=== PATIENT | female | born 1950 | race Caucasian/White ===

== ENCOUNTER 2023-06-12 13:23 | Emergency (ER) | payer MEDICARE, SELFPAY ==
[2023-06-12] VITALS (12 sets, daily range): BP systolic 98–127; BP diastolic 44–82; PULSE 69–94; RESP 12–20; TEMP 36.4–36.7; O2SAT 92–99; BMI 29.4
[2023-06-12 13:47] LABS: Chloride 103 mmol/L (98-107)
[2023-06-12 13:48] LABS: Sodium 138 mmol/L (136-145)
--- NOTE | 2023-06-12 13:49 | XR_ITS ---
PROCEDURE INFORMATION: Exam: XR Right Femur Exam date and time: 06/12/2023 2:13 PM Age: 72 years old Clinical indication: Injury or trauma; Fall; Blunt trauma; Thigh or upper leg; Right; Additional info: Fall, pain TECHNIQUE: Imaging protocol: Radiologic exam of the right femur. Views: 2 views. COMPARISON: CR XR HIP RT 2-3V W/PELVIS 06/12/2023 2:12 PM FINDINGS: Bones/joints: Acute intertrochanteric fracture of the proximal femur with subtrochanteric extension and displaced comminuted lesser trochanter fracture. Mild medial displacement of the femoral shaft with mild impaction. Femoral head is seated within the acetabulum. Soft tissues: Unremarkable. IMPRESSION: Acute intertrochanteric fracture of the proximal femur with subtrochanteric extension and displaced comminuted lesser trochanter fracture. Mild medial displacement of the femoral shaft with mild impaction.
--- NOTE | 2023-06-12 13:49 | XR_ITS ---
PROCEDURE INFORMATION: Exam: XR Right Hip Exam date and time: 06/12/2023 2:12 PM Age: 72 years old Clinical indication: Injury or trauma; Fall; Blunt trauma (contusions or hematomas); Right; Hip and pelvic region; Additional info: Fall, pain TECHNIQUE: Imaging protocol: Radiologic exam of the right hip. Views: 2 or 3 views hip with pelvis when performed. COMPARISON: No relevant prior studies available. FINDINGS: Bones/joints: Acute intertrochanteric fracture of the proximal femur with subtrochanteric extension and displaced comminuted lesser trochanter fracture. Mild medial displacement of the femoral shaft with mild impaction. Femoral head is seated within the acetabulum. Soft tissues: Unremarkable. IMPRESSION: Acute intertrochanteric fracture of the proximal femur with subtrochanteric extension and displaced comminuted lesser trochanter fracture. Mild medial displacement of the femoral shaft with mild impaction. Femoral head is seated within the acetabulum.
--- NOTE | 2023-06-12 13:49 | XR_ITS ---
PROCEDURE INFORMATION: Exam: XR Right Knee Exam date and time: 06/12/2023 2:17 PM Age: 72 years old Clinical indication: Pain; Knee; Right; Additional info: Fall, pain TECHNIQUE: Imaging protocol: Radiologic exam of the right knee. Views: 3 views. COMPARISON: CR XR FEMUR RT 2V 06/12/2023 2:13 PM FINDINGS: Bones/joints: No acute fracture or dislocation. Alignment anatomic. Soft tissues: Unremarkable. IMPRESSION: No acute osseous abnormality.
[2023-06-12 13:50] LABS: Alanine Aminotransferase 50 U/L (12-78); Albumin Level 4.6 g/dl (3.5-5.0); Alkaline Phosphatase 112 U/L (38-126); Aspartate Amino Transferase 47 U/L (14-36); Bilirubin,Total 0.7 mg/dl (0.2-1.3); Blood Urea Nitrogen 19 mg/dl (7-17); Creatinine Clearance Estimated 60 mL/min (50-200); Estimated Glomerular Filt Rate 82 ml/min (>60); GFR (African American) 99 ML/MIN (>60)
[2023-06-12 13:51] LABS: Albumin/Globulin Ratio 1.3 (1.1-1.8); Calcium 9.3 mg/dl (8.4-10.2); Carbon Dioxide 26 mmol/L (22.0-30.0); Globulin 3.6 g/dL (1.3-3.2); Glucose 149 mg/dl (74-100); Total Protein,Serum 8.2 g/dl (6.3-8.2)
[2023-06-12 13:54] LABS: Activated Partial Thrombo Time 23.3 seconds (22.8-30.6); INR 1.01 (0.9-1.1); Prothrombin Time 10.9 seconds (10.1-12.5)
--- NOTE | 2023-06-12 14:04 | HMH.EDGENADL ---
Discharge Plan Disposition Patient Disposition: Admitted Condition: Good Referrals Follow up/Referrals: Provider,Referral, MD [Primary Care Provider] - See instructions Clinical Impressions Clinical Impression: Closed fracture of right hip, Fall Instructions Patient Instructions: DI for Hip Fracture Discharge ED Provider: Caesar Florence General Adult HPI <Ana Small DO - Last Filed: 06/12/23 15:27> General Chief complaint: Extremity Injury, Lower Stated complaint: Fall Time Seen by Provider: 06/12/23 13:25 Mode of Arrival: EMS Source of Information: Patient and EMS Limitations: No Limitations Description of Symptoms (Recalled from ER Triage Doc. by RN): pt was at [employer] today and tripped down two steps and landed on right hip and knee. right leg is shortened and rotated however sensation is intact and skin is warm and dry. pt denies any loc or head, neck, back injury. History of Present Illness HPI narrative: This patient is a 72-year-old female with a history of hypertension presenting to the emergency department for evaluation with concern for severe right hip pain after a fall at [employer]. She states she tripped on the stairs and missed 2 steps, landing on her right hip and knee. She has not been able to bear weight since and has significant pain and deformity to her right lower extremity. She denies any other concerns, such as head injury, loss of conscious, neck pain, back pain, chest pain, abdominal pain, or other concerns. She denies any numbness, tingling, or other issues. She was well prior to this. She does not take any blood thinners. Related Data Allergies Allergy/AdvReac Type Severity Reaction Status Date / Time Penicillins Allergy Mild Rash Verified 06/12/23 13:58 PFSH <Ana Small DO - Last Filed: 06/12/23 15:27> [facility] Disclaimer: The information contained in this section may have been updated after the patient was seen, as this information can be updated by other users. Social History (Updated 06/12/23 @ 15:27 by Ana Small DO) Smoking Status: Never smoker alcohol intake: never current occupational status: retired Travel in the last 8 weeks: None <Ana Small DO - Last Filed: 06/12/23 15:27> ROS Obtained: Yes All systems reviewed & no additional complaints except as documented Physical Exam <Ana Small DO - Last Filed: 06/12/23 15:27> General General appearance: alert and in distress (In mild distress secondary to pain) Head Head exam: atraumatic and normocephalic Eye Eye exam: Present normal appearance, PERRL and EOMI ENT ENT exam: Present normal exam, normal oropharynx, mucous membranes moist and normal external ear exam Neck Neck exam: Present normal inspection, full ROM and trachea midline; Absent tenderness Chest Chest inspection: Present normal inspection and symmetric chest wall rise; Absent tenderness Respiratory Respiratory exam: Present normal lung sounds bilaterally; Absent respiratory distress, wheezes, stridor or accessory muscle use Cardiovascular Cardiovascular exam: Present regular rate and normal rhythm Abdominal Exam Abdominal exam: Present soft; Absent distention, tenderness or guarding Extremities Exam Extremities exam: Present full ROM, tenderness, normal capillary refill, edema and other (Shortened and externally rotated right lower extremity with tenderness and vomiting to the proximal hip/thigh. All compartments soft. Neurovascularly intact distally. No other injuries noted) Back Exam Back exam: Present normal inspection and full ROM; Absent tenderness Neurological Exam Neurological exam: Present alert, oriented X3, CN II-XII intact and normal gait; Absent motor sensory deficit Psychiatric Psychiatric exam: Present normal affect and normal mood Skin Skin exam: Present warm and dry Medical Decision Making <Ana Small DO - Last Filed: 06/12/23 15:27> Medical Records Medical records reviewed: Yes I reviewed the patient's medic
--- NOTE | 2023-06-12 14:24 | CT_ITS ---
PROCEDURE INFORMATION: Exam: CT Cervical Spine Without Contrast Exam date and time: 06/12/2023 2:47 PM Age: 72 years old Clinical indication: Injury or trauma; Fall; Blunt trauma; Additional info: Fall, >65, hip pain TECHNIQUE: Imaging protocol: Computed tomography of the cervical spine without contrast. Radiation optimization: All CT scans at this facility use at least one of these dose optimization techniques: automated exposure control; mA and/or kV adjustment per patient size (includes targeted exams where dose is matched to clinical indication); or iterative reconstruction. REPORTING DATA: Count of CT and Cardiac NM exams in prior 12 months: This patient has received 0 known CTs and 0 known cardiac nuclear medicine studies in the 12 months prior to the current study. COMPARISON: CT HEAD/BRAIN WO CON 06/12/2023 2:44 PM FINDINGS: Bones/joints: Normal alignment. No fracture or traumatic subluxation. Disk spaces are maintained. No severe spinal canal stenosis. Sclerotic bone lesion T2 vertebral body likely representing benign bone island. Lungs: Lung apices are normal. Soft tissues: Unremarkable. IMPRESSION: No acute findings.
--- NOTE | 2023-06-12 14:24 | CT_ITS ---
PROCEDURE INFORMATION: Exam: CT Pelvis Without Contrast; Skeletal Exam date and time: 06/12/2023 2:50 PM Age: 72 years old Clinical indication: Injury or trauma; Fall; Blunt trauma (contusions or hematomas); Right; Hip; Additional info: Fall, >65, hip pain TECHNIQUE: Imaging protocol: Computed tomography of the pelvis without contrast. Exam focused on the skeleton. Radiation optimization: All CT scans at this facility use at least one of these dose optimization techniques: automated exposure control; mA and/or kV adjustment per patient size (includes targeted exams where dose is matched to clinical indication); or iterative reconstruction. REPORTING DATA: Count of CT and Cardiac NM exams in prior 12 months: This patient has received 0 known CTs and 0 known cardiac nuclear medicine studies in the 12 months prior to the current study. COMPARISON: CR XR HIP RT 2-3V W/PELVIS 06/12/2023 2:12 PM FINDINGS: Bones/joints: Acute intertrochanteric fracture of the proximal femur with subtrochanteric extension and displaced comminuted lesser trochanter fracture. Mild medial displacement of the femoral shaft with mild impaction. Femoral head is seated within the acetabulum. Chronic bilateral pars defects at L5 with grade 2 (approximately 50%) anterolisthesis of L5 on S1. Osteopenia. Soft tissues: Mild edema/hematoma about the fracture site. Other findings: Within the included pelvis, there is right pelvic kidney. Large ventral hernia containing colon and small bowel. Inferior margin of the liver is seen suggesting there is probably hepatomegaly. Calcified aortoiliac atherosclerotic disease. IMPRESSION: 1. Acute intertrochanteric fracture of the proximal femur with subtrochanteric extension and displaced comminuted lesser trochanter fracture. Mild medial displacement of the femoral shaft with mild impaction. Femoral head is seated within the acetabulum. 2. Chronic bilateral pars defects at L5 with grade 2 anterolisthesis of L5 on S1. 3. Other chronic and incidental findings as detailed above.
--- NOTE | 2023-06-12 14:24 | CT_ITS ---
PROCEDURE INFORMATION: Exam: CT Right Lower Extremity Without Contrast, Hip Exam date and time: 06/12/2023 2:55 PM Age: 72 years old Clinical indication: Injury or trauma; Fall; Blunt trauma; Hip; Right; Additional info: Fall, >65, hip pain TECHNIQUE: Imaging protocol: CT of the right lower extremity without contrast was performed. Exam focused on the hip. Radiation optimization: All CT scans at this facility use at least one of these dose optimization techniques: automated exposure control; mA and/or kV adjustment per patient size (includes targeted exams where dose is matched to clinical indication); or iterative reconstruction. REPORTING DATA: Count of CT and Cardiac NM exams in prior 12 months: This patient has received 0 known CTs and 0 known cardiac nuclear medicine studies in the 12 months prior to the current study. COMPARISON: CR XR HIP RT 2-3V W/PELVIS 06/12/2023 2:12 PM FINDINGS: Bones/joints: Acute intertrochanteric fracture of the proximal femur with subtrochanteric extension and displaced comminuted lesser trochanter fracture. Mild anterior and medial displacement of the femoral shaft with mild impaction. Femoral head is seated within the acetabulum. Osteopenia. Soft tissues: Associated edema/hematoma about the fracture site. IMPRESSION: Acute intertrochanteric fracture of the proximal femur with subtrochanteric extension and displaced comminuted lesser trochanter fracture. Mild anterior and medial displacement of the femoral shaft with mild impaction. Femoral head is seated within the acetabulum.
--- NOTE | 2023-06-12 14:24 | CT_ITS ---
PROCEDURE INFORMATION: Exam: CT Head Without Contrast Exam date and time: 06/12/2023 2:44 PM Age: 72 years old Clinical indication: Injury or trauma; Fall; Blunt trauma (contusions or hematomas); Consciousness not specified; Additional info: Fall, >65, hip pain TECHNIQUE: Imaging protocol: Computed tomography of the head without contrast. Radiation optimization: All CT scans at this facility use at least one of these dose optimization techniques: automated exposure control; mA and/or kV adjustment per patient size (includes targeted exams where dose is matched to clinical indication); or iterative reconstruction. REPORTING DATA: Count of CT and Cardiac NM exams in prior 12 months: This patient has received 0 known CTs and 0 known cardiac nuclear medicine studies in the 12 months prior to the current study. COMPARISON: No relevant prior studies available. FINDINGS: Brain: There is vague asymmetric hypodensity within the white matter right cerebellar hemisphere that may be artifactual but inconclusive for cerebellar mass. There is also some speckled punctate densities along the right cerebral pontine angle cistern close to the internal auditory canal that may also be artifactual nature. There is no evidence of intracranial hemorrhage. There are no areas of mass effect or midline shift. Cerebral ventricles: There is mild-moderate ventriculomegaly out of proportion to the degree of atrophy raising possibility of underlying communicating hydrocephalus (NPH) which should be correlated clinically. Paranasal sinuses: Visualized sinuses are unremarkable. No fluid levels. Mastoid air cells: Visualized mastoid air cells are well aerated. Bones/joints: Unremarkable. No acute fracture. Soft tissues: Unremarkable. IMPRESSION: 1. Vague hypodensity right cerebellar hemisphere inconclusive for cerebellar mass and possibly artifactual. Follow-up CT or MRI brain with contrast recommended for further assessment. 2. Indistinct speckled punctate densities right cerebellopontine angle cistern which may also be artifactual in could be reassessed on follow-up CT exam with contrast. 3. Mild nonspecific ventriculomegaly. Please correlate for communicating hydrocephalus (NPH).
[2023-06-12 14:52] LABS: Basophils # 0.1 K/mm3 (0-0.2); Basophils % 0.7 % (0.1-2.0); Eosinophils # 0.2 K/mm3 (0.0-0.4); Eosinophils % 1.8 % (0.1-12.0); Hematocrit 42.9 % (37.0-47.0); Hemoglobin 14.1 g/dL (12.2-16.2); Lymphocytes # 4.6 K/mm3 (0.7-4.5); Lymphocytes % 50.2 % (10-50); Mean Corpuscular HGB Conc 32.9 g/dL (31.8-35.4); Mean Corpuscular Hemoglobin 31.7 pg (27.0-31.2); Mean Corpuscular Volume 96.2 fl (81-99); Mean Platelet Volume 10.8 fl (7.4-10.4); Monocytes # 0.6 K/mm3 (0.1-1.0); Monocytes % 6.4 % (1.7-9.3); Neutrophils # 3.8 K/mm3 (1.8-7.8); Platelet Count 205 K/mm3 (142-424); Red Blood Count 4.46 M/mm3 (4.20-5.40); Red Cell Distribution Width 13.3 % (11.5-17.5); White Blood Count 9.2 K/mm3 (4.8-10.8)
[2023-06-12 14:57] LABS: MANUAL DIFFERENTIAL MANUAL DIFFERENTIAL (MANUAL DIFF)
[2023-06-12 15:05] LABS: Eosinophils % 2 % (0-3); Lymphocytes % 48 % (10-50); Monocytes % 3 % (2-9); Neutrophils % 47 % (42-76); Platelet Estimate Normal; RBC Morphology Normal; Total Cells Counted 100
--- NOTE | 2023-06-12 15:05 | PC.NURSE ---
Dr. Small s/w pt & her spouse regarding admission. Pt & spouse are adamant regarding transfer to [facility] since they are from there and their PCP is there. Dr. small had a long discussion with them and despite higher cost with transport, they would like to explore this option.
--- NOTE | 2023-06-12 15:19 | PC.NURSE ---
called [facility] for transfer, dr carballo spoke with them
--- NOTE | 2023-06-12 15:24 | PC.NURSE ---
Dr. Florence s/w [facility]. Radiology asked to power-share images to [facility] and prepare a disc
--- NOTE | 2023-06-12 15:34 | PC.NURSE ---
called [facility] in [place] for transfer
--- NOTE | 2023-06-12 15:43 | PC.NURSE ---
Dr Florence speaking with Dr Egan of [facility]
--- NOTE | 2023-06-12 15:48 | PC.NURSE ---
Dr Florence speaking with the hospitalist at [facility]
--- NOTE | 2023-06-12 17:37 | PC.NURSE ---
Called report to Kwame PIERCE @ [facility]- [phone]. Pt is going to room 523. Bonilla cath placed and clear, yellow urine draining.
[2023-06-12 17:46] LABS: Microscopic, Urine URINE MICROSCOPIC (MICROSCOPIC)
[2023-06-12 17:48] LABS: Appearance,Urine CLEAR (Clear); Bilirubin,Urine Negative (Negative); Blood, Urine Negative (Negative); Color,Urine YELLOW (Yellow); Glucose,Urine (UA) Negative (Negative); Ketones,Urine Negative (Negative); Leukocyte Esterase,Urine Negative (Negative); Nitrate,Urine Negative (Negative); PH,Urine 6.5 (5.0-8.5); Protein,Urine Negative (Negative); Specific Gravity, Urine <= 1.005 (1.005-1.030); Urobilinogen,Urine 0.2 EU/dl (0.2)
--- NOTE | 2023-06-12 17:53 | PC.NURSE ---
transfer delayed d/t [facility] is out on 4 different calls at the moment. Pt & spouse updated on this.
== END 2023-06-12 19:30 | disposition short-term general hospital (02) ==
LOC: ER 15:02 → 2ND 15:12 → ER 16:57
PROVIDERS: Emergency Medicine; Emergency Provider Emergency Medicine
DX: S72.141A Displaced intertrochanteric fracture of right femur, initial encounter for closed fracture (principal); S72.121A Displaced fracture of lesser trochanter of right femur, initial encounter for closed fracture; S72.301A Unspecified fracture of shaft of right femur, initial encounter for closed fracture; W10.8XXA Fall (on) (from) other stairs and steps, initial encounter
CPT/HCPCS: 51702; 70450; 72125; 72192; 73502; 73552; 73562; 73700; 80053; 81001; 85007; 85025; 85610; 85730; 96374; 96375; 99285; J0131; J2405